=== PATIENT | male | born 1985 | race African-American/Black ===

== ENCOUNTER 2020-05-22 10:07 | Emergency (ER) | payer OTHER ==
[~2020-05-22] VITALS: Ht 180.3 cm; Wt 74.8 kg
[2020-05-22] MEDS ORDERED: KETO10TA2 PO (12:18)
[2020-05-22] MEDS ORDERED: NORFLEX100MG PO (12:18)
== END 2020-05-22 12:15 | disposition home or self-care (01) ==
LOC: ER 10:07
DX: M54.5 Low back pain (principal); M54.6 Pain in thoracic spine

== ENCOUNTER → 2020-06-05 | Emergency (ER) | payer OTHER ==
[~2020-06-05] VITALS: Ht 180.3 cm; Wt 72.6 kg
[~2020-06-05] MED LIST: KETO10TA2 PO; NORFLEX100MG PO; ROBAXIN-750750 MG PO; VOLTAREN-XR100 MG PO
== END ==
LOC: ER 17:02
DX: M54.5 Low back pain (principal); S33.9XXS Sprain of unspecified parts of lumbar spine and pelvis, sequela; X50.9XXS Other and unspecified overexertion or strenuous movements or postures, sequela

== ENCOUNTER 2021-10-25 19:15 | Emergency (ER) | payer OTHER ==
[~2021-10-25] VITALS: Ht 177.8 cm; Wt 76.2 kg
[2021-10-25] MEDS ORDERED: TRAZODONE HCL150 MG PO (19:26)
[2021-10-25] MEDS ORDERED: CLONAZEPAM1 MG PO (19:26)
[2021-10-25] MEDS ORDERED: ORPHENADRINE C100 MG PO (21:58)
[2021-10-25] MEDS ORDERED: KETO10TA2 PO (21:58)
== END 2021-10-25 22:15 | disposition home or self-care (01) ==
LOC: ER 19:15
DX: S80.11XA Contusion of right lower leg, initial encounter (principal); S30.0XXA Contusion of lower back and pelvis, initial encounter; W18.09XA Striking against other object with subsequent fall, initial encounter; Y93.89 Activity, other specified; Y92.69 Other specified industrial and construction area as the place of occurrence of the external cause; Y99.8 Other external cause status